=== PATIENT | male | born 1935 | race Caucasian/White ===

== ENCOUNTER → 2019-06-24 | Outpatient (CLI) | payer OTHER ==
--- NOTE | 2019-06-24 13:53 | RAD ---
EXAM: Bilateral knees, standing view; left knee, 2 views. HISTORY: Pain. COMPARISON: None. FINDINGS: A standing view both knees and 2 views of the left knee are obtained. There is no fracture, dislocation or subluxation. There is right greater than left medial and lateral compartment chondrocalcinosis. There is minimal right medial compartment marginal spurring. There is a small left knee effusion. There is slight enthesopathy along the superior patella. There are vascular calcifications. 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 IMPRESSION: 1. Mild osteoarthritis of both knees and right greater than left knee chondrocalcinosis. 2. Small left knee effusion. Electronically signed by: Courtney Man MD (06/24/2019 1:50 PM) [id number]
== END | disposition home or self-care (01) ==
LOC: DXRAD 12:39
PROVIDERS: ATTEND Orthopaedic Surgery Sports Medicine
DX: M17.0 Bilateral primary osteoarthritis of knee (principal); M11.262 Other chondrocalcinosis, left knee; M11.261 Other chondrocalcinosis, right knee; M25.462 Effusion, left knee
CPT/HCPCS: 73560; 73565